=== PATIENT | male | born 1945 | race African-American/Black ===

== ENCOUNTER 2019-01-21 07:24 | Emergency (ER) | payer MEDICARE ==
[~2019-01-21] VITALS: Ht 182.9 cm; Wt 136.1 kg
--- OUTSIDE RECORDS SUMMARY | 2019-01-21 07:27 | XMS REPORT ---
Author [facility] Address [facility] Phone Unavailable Care Team Providers Care Frame Hand Name Role Phone Unavailable Unavailable Problems This patient has no known problems. Allergies, Adverse Reactions, Alerts This patient has no known allergies or adverse reactions. Medications This patient has no known medications. Encounters Start Date/Time End Date/Time Encounter Type Admission Type Attending [facility] Care Department Encounter ID 2019-02-16 00:00:00 2019-02-16 00:00:00 Outpatient [facility] [id number] 2019-02-02 00:00:00 2019-02-02 00:00:00 Outpatient [facility] [id number] 2019-01-05 00:00:00 2019-01-05 00:00:00 Outpatient [facility] [id number] 2019-01-04 00:00:00 2019-01-04 00:00:00 Outpatient [facility] [id number] 2018-12-15 13:43:06 2018-12-15 13:43:06 Outpatient [facility] [id number] 2018-12-15 12:49:38 2018-12-15 12:49:38 Outpatient [facility] [id number] 2018-12-15 11:51:04 2018-12-15 11:51:04 Outpatient [facility] [id number] 2018-12-15 00:00:00 2018-12-15 00:00:00 Outpatient [facility] [id number] 2018-03-29 00:00:00 2018-03-29 00:00:00 Outpatient [facility] [id number] 2018-03-24 18:56:28 2018-03-24 18:56:28 Emergency [facility] [id number] 2018-03-24 17:25:39 2018-03-24 17:25:39 Emergency [facility] [id number] 2018-02-09 13:42:10 2018-02-09 13:42:10 Outpatient [facility] [id number] 2018-02-09 12:44:16 2018-02-09 12:44:16 Outpatient [facility] [id number] 2018-01-28 00:00:00 2018-01-28 00:00:00 Outpatient [facility] [id number] 2018-01-26 00:00:00 2018-01-26 00:00:00 Outpatient [facility] [id number] 2018-01-25 00:00:00 2018-01-25 00:00:00 Outpatient [facility] [id number] 2018-01-25 00:00:00 2018-01-25 00:00:00 Outpatient [facility] [id number] 2017-12-31 10:38:52 2017-12-31 10:38:52 Outpatient [facility] [id number] 2017-12-25 00:00:00 2017-12-25 00:00:00 Outpatient [facility] [id number] 2017-12-24 08:25:20 2017-12-24 08:25:20 Outpatient [facility] [id number] 2017-11-23 15:31:29 2017-11-23 15:31:29 Outpatient [facility] [id number] 2017-11-23 14:11:00 2017-11-23 14:11:00 Emergency [facility] [id number] 2017-11-23 09:47:52 2017-11-23 09:47:52 Outpatient [facility] [id number] 2017-10-16 10:54:01 2017-10-16 10:54:01 Outpatient [facility] [id number] 2017-10-05 13:42:00 2017-10-05 13:42:00 Outpatient [facility] [id number] 2017-10-05 12:45:09 2017-10-05 12:45:09 Outpatient [facility] [id number] 2017-09-28 12:51:55 2017-09-28 12:51:55 Outpatient [facility] [id number] 2017-08-03 00:00:00 2017-08-03 00:00:00 Outpatient [facility] [id number] 2017-06-22 15:05:00 2017-06-22 15:05:00 Outpatient [facility] [id number] 2017-06-22 13:04:26 2017-06-22 13:04:26 Outpatient [facility] [id number] 2017-06-03 07:25:59 2017-06-03 07:25:59 Outpatient [facility] [id number] 2017-05-20 12:40:46 2017-05-20 12:40:46 Outpatient [facility] [id number] 2017-04-10 08:50:21 2017-04-10 08:50:21 Outpatient [facility] [id number] 2017-03-31 08:47:23 2017-03-31 08:47:23 Outpatient [facility] [id number] 2017-02-23 13:22:07 2017-02-23 13:22:07 Outpatient [facility] [id number] 2017-02-09 00:00:00 2017-02-09 00:00:00 Outpatient [facility] [id number] 2017-01-28 10:04:54 2017-01-28 10:04:54 Outpatient [facility] [id number] 2016-12-15 00:00:00 2016-12-15 00:00:00 Outpatient [facility] [id number] 2016-11-28 13:06:36 2016-11-28 13:06:36 Outpatient [facility] [id number] 2016-11-28 07:03:50 2016-11-28 07:03:50 Outpatient [facility] [id number] 2016-11-27 00:00:00 2016-11-27 00:00:00 Outpatient [facility] [id number] 2016-11-17 16:16:44 2016-11-17 16:16:44 Outpatient [facility] [id number] 2016-11-17 14:22:33 2016-11-17 14:22:33 Outpatient [facility] [id number] 2016-10-22 09:19:19 2016-10-22 09:19:19 Outpatient [facility] [id number] 2016-10-21 07:46:22 2016-10-21 07:46:22 Outpatient [facility] [id number] 2016-10-07 07:18:04 2016-10-07 07:18:04 Outpatient [facility] [id number] 2016-06-17 00:00:00 2016-06-17 00:00:00 Outpatient [facility] [id number]
[2019-01-21 08:02] LABS: BASOPHILS % 0.3 % (0.0-1.0); EOSINOPHILS # (AUTO) 0.2 (0.0-0.4); EOSINOPHILS % 1.6 % (0.0-6.0); HEMATOCRIT 33.7 % (38.2-49.6); HEMOGLOBIN 10.1 g/dL (14.0-18.0); LYMPHOCYTES # (AUTO) 1.7 (1.0-3.2); LYMPHOCYTES % 15.4 % (18.0-39.1); MEAN CORPUSCULAR VOLUME 86.6 fL (81-99); MONOCYTES # (AUTO) 0.8 (0.2-0.8); MONOCYTES % 6.7 % (4.4-11.3); NEUTROPHILS # (AUTO) 8.4 (2.1-6.9); NEUTROPHILS % 75.6 % (38.7-80.0); PLATELET COUNT 286 x10e3/uL (140-360); RED BLOOD COUNT 3.89 x10e6/uL (4.3-5.7); RED CELL DISTRIBUTION WIDTH 16.3 % (11.7-14.4)
[2019-01-21 08:21] LABS: ALBUMIN 2.8 g/dL (3.5-5.0); ALBUMIN/GLOBULIN RATIO 0.7 (0.8-2.0); ANION GAP 9.2 mmol/L (8-16); CALCIUM 8.8 mg/dL (8.4-10.2); CREATININE, SERUM 1.76 mg/dL (0.72-1.25); MAGNESIUM 1.8 MG/DL (1.3-2.1); POTASSIUM 4.2 mmol/L (3.5-5.1)
--- NOTE | 2019-01-21 08:26 | Diagnostic Imaging Report ---
Chest, 1 view, 01/21/2019. History: Shortness of breath. Comparison: None available. Findings: The cardiomediastinal silhouette and pulmonary vasculature are prominent with patchy bibasilar opacities, left greater than right. There are no acute osseous or soft tissue abnormalities. Impression: Cardiomegaly with vascular congestion and bibasilar opacities suggestive of atelectasis, although pneumonia cannot be excluded on the left. Recommend follow-up two-view chest. Signed by: Barrington Ford on 01/21/2019 8:23 AM
[2019-01-21 08:28] LABS: CREATINE KINASE MB 2.6 ng/mL (0-5.0)
[2019-01-21 08:38] LABS: INR 0.99; PROTHROMBIN TIME 13.6 seconds (11.9-14.5)
[2019-01-21 09:03] LABS: BILIRUBIN,URINE NEGATIVE (NEGATIVE); CLARITY,URINE CLEAR (CLEAR); COLOR,URINE YELLOW (YELLOW); KETONES,URINE NEGATIVE (NEGATIVE); LEUKOCYTE ESTERASE ,URINE NEGATIVE (NEGATIVE); NITRITE,URINE NEGATIVE (NEGATIVE); PROTEIN,URINE DIPSTICK 1+ (NEGATIVE); URINE UROBILINOGEN 1 mg/dL (0.2 - 1)
[2019-01-21 09:21] LABS: BACTERIA,URINE RARE /HPF; EPITHELIAL CELLS,URINE FEW /LPF; RBC,URINE 0-5 /HPF (0-5); WBC,URINE (MAN) 0-5 /HPF (0-5)
[2019-01-21 09:25] LABS: PARTIAL THROMBOPLASTIN TIME 35.2 seconds (23.8-35.5)
[2019-01-21] MEDS ORDERED: FUROSEMIDE INJ 10 MG/ML 4 ML VIAL IV ONE (09:30)
[2019-01-21 11:16] VITALS: BP 147/82
== END 2019-01-21 11:19 | disposition home or self-care (01) ==
LOC: ER 07:24
DX: R06.00 Dyspnea, unspecified (principal); R60.0 Localized edema; I50.1 Left ventricular failure, unspecified; I10 Essential (primary) hypertension; N18.9 Chronic kidney disease, unspecified; Z86.73 Personal history of transient ischemic attack (TIA), and cerebral infarction without residual deficits
CPT/HCPCS: 36415; 71045; 80053; 81001; 82550; 82553; 83735; 83880; 84484; 85025; 85610; 85730; 87086; 99284; J1940